=== PATIENT | female | born 1945 | race Caucasian/White ===

== ENCOUNTER 2021-10-18 18:08 | Inpatient (IN) | payer MEDICARE ==
[~2021-10-18] VITALS: Ht 162.6 cm; Wt 61.7 kg
[2021-10-18] MEDS ORDERED: IV NORMAL SALINE 1000 ML BAG IV ONE (18:45)
[2021-10-18] MEDS ORDERED: ONDANSETRON 4 MG/2 ML VIAL IV ONE (18:45)
[2021-10-18] MEDS ORDERED: ONDANSETRON 4 MG/2 ML VIAL ONE (18:57)
[2021-10-18 19:15] LABS: HEMATOCRIT 37.2 % (31.2-41.9); MEAN CORPUSCULAR HEMOGLOBIN 28.6 uug (24.7-32.8); MEAN CORPUSCULAR VOLUME 85.7 fL (75.5-95.3); PLATELET COUNT (AUTO) 200 K/uL (179-408)
--- NOTE | 2021-10-18 19:15 | NUR ---
PT IS IN ROOM #2A. DR MORA EVALUATED THE PT.
[2021-10-18 19:27] LABS: CARBON DIOXIDE 25 mmol/L (21-32); CHLORIDE 101 mmol/L (98-107); CREATININE 0.6 mg/dL (0.6-1.3); GLUCOSE 191 mg/dL (74-106); POTASSIUM 3.6 mmol/L (3.5-5.1); UREA NITROGEN, BLOOD 15 mg/dL (7-18)
[2021-10-18 19:44] LABS: ALANINE AMINOTRANSFERASE 91 U/L (14-59); ALKALINE PHOSPHATASE 77 U/L (50-136); ASPARTATE AMINOTRANSFERASE 55 U/L (15-37); BILIRUBIN,DIRECT 0.1 mg/dL (0.0-0.2); BILIRUBIN,TOTAL 0.3 mg/dL (0.2-1.0); LIPASE 66 U/L (73-393); TOTAL PROTEIN, SERUM 7.2 g/dL (6.4-8.2)
[2021-10-18] MEDS ORDERED: IV NORMAL SALINE 0 ML IV ONE (19:54)
[2021-10-18] MEDS ORDERED: IOHEXOL 350 100 ML INFUS..BTL ONE (19:54)
[2021-10-18] MEDS ORDERED: SWABABLE VALVE TRANSFER SET EA MC ONE (19:54)
[2021-10-18 21:06] LABS: *BILIRUBIN,URIN NEGATIVE (NEGATIVE); *BLOOD, URINE NEGATIVE (NEGATIVE); *CLARITY,URINE CLEAR (CLEAR); *COLOR,URINE YELLOW (YELLOW); *KETONES,URINE 1+ (NEGATIVE); *UROBILINOGEN,URINE 0.2 E.U./dl (NORMAL); LEUKOCYTE ESTERASE ,URINE TRACE (NEGATIVE); NITRITE, URINE NEGATIVE (NEGATIVE); PH,URINE 6.5 (5.0-8.0); UGLUCOSE 2+ (NEGATIVE)
[2021-10-18] MEDS ORDERED: diphenhydrAMINE 50 MG/1 ML VIAL IV ONE (21:30)
[2021-10-18] MEDS ORDERED: METOCLOPRAMIDE HCL 10 MG/2 ML VIAL IV ONE (21:30)
[2021-10-18] MEDS ORDERED: ACETAMINOPHEN 650 MG SUPP.RECT RC PRN (21:45)
[2021-10-18] MEDS ORDERED: METOCLOPRAMIDE HCL 10 MG/2 ML VIAL ONE (21:50)
[2021-10-18] MEDS ORDERED: diphenhydrAMINE 50 MG/1 ML VIAL ONE (21:50)
[2021-10-18 22:47] LABS: BACTERIA,URINE NONE SEEN /HPF (NONE SEEN); RBC,URINE 0-3 /HPF (0-3); SQUAMOUS EPITHELIAL CELL,UR MODERATE /HPF (NONE SEEN)
--- NOTE | 2021-10-18 23:40 | NUR ---
Report given to Hannah GUIDRY Tele.
[2021-10-19] MEDS ORDERED: GABAPENTIN 100 MG CAPSULE PO SCH (00:30)
[2021-10-19] MEDS ORDERED: PANTOPRAZOLE SODIUM 40 MG TABLET.DR PO SCH (00:30)
[2021-10-19] MEDS ORDERED: PANTOPRAZOLE SODIUM 40 MG TABLET.DR PO ONE (00:31)
[2021-10-19] MEDS ORDERED: GABAPENTIN 100 MG CAPSULE ONE (00:31)
[2021-10-19 00:58] VITALS: BP 145/59
[2021-10-19] MEDS: IV NS 1000 ML 1,000 ML IV PRN ×2 (01:03→18:23)
[2021-10-19] MEDS: METOCLOPRAMIDE HCL 10 MG/2 ML VIAL IV SCH ×4 (01:06→21:32)
--- NOTE | 2021-10-19 01:10 | NUR ---
Admitted covid pt from ER via storm[facility] accompanied by 2 nursing staff. She is alert and oriented x4, able to make needs known. On room air saturating at 95%. HOB kept elevated d/t feeling dizzy when laying flat. Heplock on L AC #22 patent and intact. On clear liquids diet. Admission process, full body assessment, and belongings list filled up. Noted with L foot/ankle redness, picture taken and placed in chart. Due medications given and tolerated well. Toileting assistance rendered using bedpan. All needs attended. Call light placed within reach. Will continue to monitor.
[2021-10-19 04:55] VITALS: BP 132/54
--- NOTE | 2021-10-19 06:43 | NUR ---
On room air, saturating at 95%. Kept HOB elevated. Due IV medication for nausea given. All needs attended. Call light placed within reach. Frequent visual checks done. Will endorse to next shift.
[2021-10-19] MEDS: ACETAMINOPHEN 325 MG TABLET PO PRN ×2 (11:32→18:35)
[2021-10-19 12:00] VITALS: BP 149/58
[2021-10-19] MEDS ORDERED: DEXTROSE 50% 50 ML DISP.SYRIN IV PRN (13:15)
[2021-10-19] MEDS ORDERED: INSULIN REGULAR, HUMAN 300 UNIT/3 ML VIAL SQ PRN (13:15)
[2021-10-19] MEDS ORDERED: INSULIN REGULAR, HUMAN 300 UNITS/3 ML VIAL SQ PRN (13:15)
[2021-10-19] MEDS ORDERED: ROSU10TA2 PO (14:00)
[2021-10-19] MEDS ORDERED: GABA-532 PO (14:00)
[2021-10-19] MEDS ORDERED: METF-440 PO (14:00)
[2021-10-19] MEDS: PANTOPRAZOLE SODIUM 40 MG TABLET.DR PO SCH (15:53)
[2021-10-19 16:00] VITALS: BP 118/53
--- NOTE | 2021-10-19 16:03 | NUR ---
Patient refusing blood sugar check. Patient wants to have metformin instead. Awaiting med reconciliation. Will endorse information to PM nurse .
[2021-10-19] MEDS: BLOOD SUGAR DIAGNOSTIC 1 EACH STRIP VI SCH ×2 (16:04→20:27)
[2021-10-19] MEDS ORDERED: METFORMIN HCL 500 MG TABLET PO SCH (17:00)
[2021-10-19] MEDS: METFORMIN HCL 500 MG TABLET PO SCH (17:15)
[2021-10-19] MEDS: GABAPENTIN 100 MG CAPSULE PO SCH (17:15)
[2021-10-19] MEDS ORDERED: Medication Not On Formulary EA (Rosuvastatin Calcium (Crestor) 10 MG) PO SCH (21:00)
[2021-10-19] MEDS ORDERED: ATORVASTATIN 20 MG TABLET PO SCH (21:00)
[2021-10-19] MEDS: CEFTRIAXONE 1 G in IV DEXTROSE 5% 50 ML IV SCH (22:30)
[2021-10-20] VITALS: BP 145/63
[2021-10-20] MEDS: ACETAMINOPHEN 325 MG TABLET PO PRN (00:37)
[2021-10-20 04:00] VITALS: BP 140/65
[2021-10-20] MEDS: METOCLOPRAMIDE HCL 10 MG/2 ML VIAL IV SCH (06:44)
[2021-10-20] MEDS: PANTOPRAZOLE SODIUM 40 MG TABLET.DR PO SCH (07:00)
--- NOTE | 2021-10-20 07:20 | NUR ---
received sitting at edge of bed, stating wants to talk to md when she can go home. informed to wait for md to round, verbalized understanding. no ss of pain or sob. iv access intact and patent. assisted in lying back down, watching tv. cont to monitor.
[2021-10-20] MEDS: BLOOD SUGAR DIAGNOSTIC 1 EACH STRIP VI SCH ×2 (07:30→11:30)
--- NOTE | 2021-10-20 07:30 | NUR ---
Shift report: Pt is alert and oriented x4 pt refused blood sugar and am protonix. pt is concerned about leaving will endorse to am nurse.
[2021-10-20] MEDS: GABAPENTIN 100 MG CAPSULE PO SCH ×3 (09:00→13:00)
[2021-10-20] MEDS: METFORMIN HCL 500 MG TABLET PO SCH (09:07)
[2021-10-20] MEDS: CEFTRIAXONE 1 G in IV DEXTROSE 5% 50 ML IV SCH (09:09)
--- NOTE | 2021-10-20 09:19 | NUR ---
consented to bs check. noted 127 mg/dl. metformin given. refused neurontin.
--- NOTE | 2021-10-20 10:29 | NUR ---
pt refused us bladder, upset why it was ordered when she's peeing fine and all day. made aware
[2021-10-20] MEDS ORDERED: METF-440 PO (11:41)
[2021-10-20] MEDS ORDERED: SULF1TAB48 PO (11:41)
[2021-10-20] MEDS ORDERED: ACET325T53 PO (11:41)
[2021-10-20] MEDS ORDERED: PANT40TA49 PO (11:41)
[2021-10-20 12:04] VITALS: BP 153/71
--- NOTE | 2021-10-20 12:43 | NUR ---
pt for discharge. verbalized understanding of discharge instructions given by retail associate eugenie earlier. excited to go home. removed iv access no bleeding noted. per cm she has already contacted [facility] for f/up. pt made aware.
[2021-10-20] MEDS ORDERED: METOCLOPRAMIDE HCL 10 MG TABLET PO SCH (13:15)
--- NOTE | 2021-10-20 13:30 | NUR ---
picked by [facility] from [facility] via gurney in stable condition. left hospital via [facility]ney.
[2021-10-21] MEDS ORDERED: METFORMIN HCL 500 MG TABLET PO SCH (09:00)
== END 2021-10-20 13:33 | disposition home health service (06) | DRG 178 ==
LOC: ER 18:11 → TELE3 23:55 → MEDSURG3 10-19 03:30
PROVIDERS: ADMIT Nurse Practitioner Acute Care; ATTEND Nurse Practitioner Acute Care
DX: U07.1 COVID-19 (principal); N39.0 Urinary tract infection, site not specified; R11.2 Nausea with vomiting, unspecified; R53.1 Weakness; R74.01 Elevation of levels of liver transaminase levels; G70.00 Myasthenia gravis without (acute) exacerbation; E11.9 Type 2 diabetes mellitus without complications; Z79.84 Long term (current) use of oral hypoglycemic drugs
CPT/HCPCS: 36415; 71045; 83605; 83690; 84484; 85025; 85730; 87040; 87086; 93005; 97161; A4663; G0378; J0696; J1200; J1815; J2405; J2765; J7040; J8597; Q9967; U0003